=== PATIENT | male | born 1965 | race African-American/Black ===

== ENCOUNTER 2017-02-19 13:44 | Emergency (ER) | payer OTHER ==
[~2017-02-19] VITALS: Ht 170.2 cm; Wt 75.0 kg
[~2017-02-19 13:44] MED LIST: HYDR25TA PO; LORA1TAB PO
[2017-02-19] MEDS ORDERED: LEVETIRACETAM 500MG TABLET PO ONE (14:45)
[2017-02-19 15:20] LABS: BASOPHILS % 0.6 % (0.0-2.0); EOSINOPHILS % 0.3 % (0.0-5.0); HEMATOCRIT. 36.9 % (42.0-52.0); HEMOGLOBIN. 12.7 g/dL (14.0-18.0); LYMPHOCYTES % 7.6 % (20.0-50.0); MEAN CORPUSCULAR HEMOGLOBIN 33.4 pg (28.0-32.0); MEAN CORPUSCULAR VOLUME 96.8 fL (80.0-94.0); MEAN PLATELET VOLUME 8.1 fl (7.4-10.4); MONOCYTES % 10.1 % (2.0-8.0); NEUTROPHILS % 81.4 % (40.0-76.0); PLATELET 163 x1000/uL (130-400); RED BLOOD CELL COUNT 3.82 mill/uL (4.7-6.1); RED CELL DISTRIBUTION WIDTH 13.6 % (11.6-14.6)
[2017-02-19 15:24] LABS: CHLORIDE 97 mEq/L (98-107)
[2017-02-19 15:29] LABS: CARBON DIOXIDE 22 mEq/L (21-32)
[2017-02-19 15:35] LABS: PROTHROMBIN TIME 10.2 sec
[2017-02-19 17:01] LABS: CLARITY URINE CLEAR (CLEAR); COLOR URINE YELLOW (YELLOW); GLUCOSE URINE NEGATIVE (NEGATIVE); KETONES URINE TRACE (NEGATIVE); LEUKOCYTE ESTERASE URINE NEGATIVE (NEGATIVE); NITRITE URINE NEGATIVE (NEGATIVE); OCCULT BLOOD URINE TRACE (NEGATIVE); PROTEIN URINE 1+ (NEGATIVE); SPECIFIC GRAVITY URINE 1.019 (1.005-1.030)
[2017-02-19 17:47] VITALS: BP 131/75
== END 2017-02-19 17:49 | disposition home or self-care (01) ==
LOC: ER 13:44
DX: R56.9 Unspecified convulsions (principal); J45.909 Unspecified asthma, uncomplicated; R53.1 Weakness; I10 Essential (primary) hypertension; F41.9 Anxiety disorder, unspecified; F12.10 Cannabis abuse, uncomplicated
CPT/HCPCS: 36415; 80053; 81001; 85025; 85610; 99284; Z7610

== ENCOUNTER 2017-09-27 19:28 | Emergency (ER) | payer OTHER ==
[~2017-09-27] VITALS: Ht 175.3 cm; Wt 72.0 kg
[2017-09-27] MEDS ORDERED: LORAZEPAM 2MG/ML CPJ IV PRN (20:00)
[2017-09-27 20:05] VITALS: BP 99/54
[2017-09-27 21:05] LABS: BASOPHILS % 0.5 % (0.0-2.0); EOSINOPHILS % 1.2 % (0.0-5.0); HEMATOCRIT. 30.4 % (42.0-52.0); HEMOGLOBIN. 10.4 g/dL (14.0-18.0); LYMPHOCYTES % 13.5 % (20.0-50.0); MEAN CORPUSCULAR HEMOGLOBIN 34.7 pg (28.0-32.0); MEAN CORPUSCULAR VOLUME 101.3 fL (80.0-94.0); MEAN PLATELET VOLUME 7.3 fl (7.4-10.4); MONOCYTES % 14.1 % (2.0-8.0); NEUTROPHILS % 70.7 % (40.0-76.0); PLATELET 196 x1000/uL (130-400); RED CELL DISTRIBUTION WIDTH 13.2 % (11.6-14.6)
[2017-09-27 21:19] LABS: CHLORIDE 104 mEq/L (98-107)
[2017-09-27 21:24] LABS: ETHANOL BLOOD 111 mg/dL
[2017-09-27] MEDS ORDERED: SODIUM CHLORIDE 0.9% 1,000 ML IV ONE (21:45)
== END 2017-09-27 23:44 | disposition home or self-care (01) ==
LOC: ER 20:41
DX: R56.9 Unspecified convulsions (principal); F10.129 Alcohol abuse with intoxication, unspecified; F17.200 Nicotine dependence, unspecified, uncomplicated
CPT/HCPCS: 36415; 80053; 85025; 96360; 99284; G0482; J7030; Z7610